=== PATIENT | male | born 1935 | race Caucasian/White ===

== ENCOUNTER 2016-07-10 11:59 | Outpatient (RCR) | payer MEDICARE, OTHER | END 2016-09-14 | disposition home or self-care (01) | LOC: CR 11:59 | PROVIDERS: ATTEND Thoracic Surgery (Cardiothoracic Vascular Surgery) | DX: Z09 Encounter for follow-up examination after completed treatment for conditions other than malignant neoplasm (principal); Z95.2 Presence of prosthetic heart valve | CPT/HCPCS: 93798 ==

== ENCOUNTER → 2018-07-05 | Outpatient (CLI) | payer MEDICARE, OTHER ==
--- NOTE | 2018-07-05 15:09 | Diagnostic Imaging Report ---
INDICATION: Scrotal swelling. FINDINGS: There are large bilateral hydroceles present. No evidence of inguinal hernia. The testicles appear symmetrical measuring 3 x 1.1 x 1.8 cm on the right and 2.7 x 1.4 x 1.5 cm on the left. There is normal blood flow to both testes. The epididymides are not enlarged. No evidence of varicoceles. IMPRESSION: Large bilateral hydroceles. The testes are normal. Dictated by: Dictated on workstation # [id number]
== END ==
LOC: RAD 13:28
PROVIDERS: ATTEND Nurse Practitioner Family
DX: N43.3 Hydrocele, unspecified (principal)
CPT/HCPCS: 76870

== ENCOUNTER → 2018-09-02 | Outpatient (CLI) | payer MEDICARE, OTHER ==
--- NOTE | 2018-09-02 17:02 | Diagnostic Imaging Report ---
INDICATION: Right flank pain EXAM: KUB 4:59 PM FINDINGS: The bowel gas pattern is normal. There are vascular calcifications present. There are no appreciable calculi. IMPRESSION: Unremarkable abdomen. Dictated by: Dictated on workstation # [id number]
== END ==
LOC: RAD 16:16
PROVIDERS: ATTEND Nurse Practitioner Family
DX: R10.9 Unspecified abdominal pain (principal); Z87.442 Personal history of urinary calculi
CPT/HCPCS: 74018

== ENCOUNTER → 2018-09-20 | Outpatient (CLI) | payer MEDICARE, OTHER ==
--- NOTE | 2018-09-20 16:08 | Diagnostic Imaging Report ---
INDICATION: Hydrocele. FINDINGS: The right testicle measures 3.0 x 1.2 x 2.3 cm and the left testicle measures 2.6 x 2.4 x 2.0 cm. No testicular mass is seen. There is blood flow bilaterally. There appears to be a large right hydrocele. There is a smaller left hydrocele. Epididymides are unremarkable. There appears to be fluid in the right inguinal canal. IMPRESSION: 1. No evidence of testicular mass or vascular compromise. 2. Large right and [id number] left hydrocele. Dictated on workstation # [id number]
== END ==
LOC: RAD 10:36
PROVIDERS: ATTEND Urology
DX: N43.3 Hydrocele, unspecified (principal); K40.90 Unilateral inguinal hernia, without obstruction or gangrene, not specified as recurrent
CPT/HCPCS: 76870

== ENCOUNTER 2018-10-07 05:39 | Outpatient (CLI) | payer MEDICARE, OTHER ==
[~2018-10-07] VITALS: Ht 172.7 cm; Wt 83.0 kg
[2018-10-07] MEDS ORDERED: PRD10T PO (11:51)
[2018-10-07] MEDS ORDERED: CARV12.52 PO (11:51)
[2018-10-07] MEDS ORDERED: TAMS0.4C2 PO (11:51)
[2018-10-07] MEDS ORDERED: CHOL500049 PO (11:51)
[2018-10-07] MEDS ORDERED: GLIM4TAB PO (11:51)
[2018-10-07] MEDS ORDERED: LISI-552 PO (11:51)
[2018-10-07] MEDS ORDERED: RUXO10TA PO (11:51)
[2018-10-07] MEDS ORDERED: BUME1TAB4 PO (11:51)
== END 2018-10-07 11:58 | disposition home or self-care (01) ==
LOC: PREOP 05:39
PROVIDERS: ATTEND Urology
DX: Z01.818 Encounter for other preprocedural examination (principal)

== ENCOUNTER 2018-10-09 06:16 | Day surgery (SDC) | payer MEDICARE, OTHER ==
[~2018-10-09] VITALS: Ht 172.7 cm; Wt 83.0 kg
[~2018-10-09 06:16] MED LIST: BUME1TAB4 PO; CARV12.52 PO; CHOL500049 PO; GLIM4TAB PO; LISI-552 PO; PRD10T PO; RUXO10TA PO; TAMS0.4C2 PO
[2018-10-09 06:40] VITALS: BP 155/80
[2018-10-09] MEDS ORDERED: ceFAZolin 2 GM IV Premixed 50 ML IV ONE ×2 (06:45→09:15)
[2018-10-09] MEDS ORDERED: CATHETER FLUSH 10 ML SYR IV PRN (06:45)
[2018-10-09] MEDS ORDERED: ceFAZolin 1,000 MG/SWFI 10 ML IV PUSH IV ONE ×2 (06:45)
[2018-10-09] MEDS ORDERED: fentaNYL INJECTION 100 MCG/2 ML AMP ONE (06:57)
[2018-10-09] MEDS ORDERED: proPOfol 200 MG/20 ML (DIPRIVAN) VIAL IV ONE (06:57)
[2018-10-09] MEDS ORDERED: ONDANSETRON 4 MG/2 ML (SDV) Z0FRAN ONE (06:57)
[2018-10-09] MEDS ORDERED: LIDOCAINE PF 2% 5 ML (XYLOCAINE) VIAL ONE (06:57)
[2018-10-09] MEDS ORDERED: ROCURONIUM 10 MG/ML 5 ML SYRINGE IV ONE (06:57)
[2018-10-09] MEDS: LACTATED RINGERS 1,000 ML IV SCH ×2 (07:05→08:10)
[2018-10-09] MEDS ORDERED: ceFAZolin 2 GM IV Premixed 50 ML ONE (07:13)
--- NOTE | 2018-10-09 07:19 | Progress Note-Pre Operative ---
Pre-Operative Progress Note H&P Reviewed The H&P was reviewed, patient examined and no changes noted. Date Seen by Provider: Oct 09, 2018 Time Seen by Provider: 07:19 Date H&P Reviewed: Oct 09, 2018 Time H&P Reviewed: 07:19 Pre-Operative Diagnosis: RT INGUINAL HERNIA AND HYDROCELE REINA MASON MD Oct 09, 2018 07:19
[2018-10-09] MEDS ORDERED: LIDOCAINE 1% INJ 20 ML 20 ML VIAL ONE (07:24)
[2018-10-09] MEDS ORDERED: BUP/EPI 0.5% 1:200,000 (SENSORCAINE) 30 ML VIAL ONE (07:24)
[2018-10-09] MEDS ORDERED: HYDROCORTISONE 100 MG/2 ML (Solu-CORTEF) VIAL ONE (08:25)
[2018-10-09] MEDS ORDERED: PHENYLEPHRINE 100 MCG/ML 10 ML (ANESTHESIA) SYR ONE (08:25)
[2018-10-09] MEDS ORDERED: SEVOFLURANE (ULTANE) 15 ML INHAL SOLN ONE ×3 (08:26→08:34)
[2018-10-09] MEDS ORDERED: BUPIVACAINE 0.25% 30 ML (SENSORCAINE) VIAL ONE (08:34)
[2018-10-09] MEDS ORDERED: GLYCOPYRROLATE 0.2 MG/ML (ROBINUL) 2 ML VIAL ONE (08:38)
[2018-10-09] MEDS ORDERED: NEOSTIGMINE 1 MG/ML 5 ML SYRINGE ONE (08:38)
--- NOTE | 2018-10-09 09:11 | Progress Note-Post Operative ---
Post-Operative Progess Note Surgeon (s)/Evp And Chief Operating Officer (s) Surgeon SHIRAZ TOBIN DO Evp And Chief Operating Officer: Dr. 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
--- NOTE | 2018-10-09 09:11 | Progress Note-Post Operative ---
Post-Operative Progess Note Surgeon (s)/Silk Weaver (s) Surgeon REINA MASON MD Silk Weaver: Bao TOBIN Pre-Operative Diagnosis RT INGUINAL HERNIA AND HYDROCELE Post-Operative Diagnosis SAME AND ATROPHIC RT TESTIS Procedure & Operative Findings Date of Procedure 10/09/18 Procedure Performed/Findings RT I.H REPAIR AND RT ORCHIECTOMY Anesthesia Type GENERAL Estimated Blood Loss Estimated blood loss (mL): NEGLIGIBLE Specimens/Packing Specimens Removed RT TESTIS WITH APPENDAGES AND SPERMATIC CORD WITH HYDROCELE HERNIA SAC Packing: NONE REINA MASON MD Oct 09, 2018 09:11
[2018-10-09] MEDS ORDERED: ACHD5005 PO (09:12)
--- NOTE | 2018-10-09 09:14 | Discharge Inst-Simple/Standard ---
Discharge Inst-Standard Discharge Medications New, Converted or Re-Newed RX: RX on Chart Patient Instructions/Follow Up Plan of Care/Instructions/FU: 2 weeks Pj 2 weeks Mao Activity as Tolerated: No Discharge Diet: Regular Diet Other Inst to Patient Follow up Appt: Make appointment for 2 weeks Pj and Mao Instructions: No lifting greater than 10 pounds. No strenuous activity. May shower in 24 hours, no tub bath or soaking. Use incentive spirometer at home as directed. No Smoking Skin/Wound Care: You have special glue over incisions it will fall off on its own. Symptoms to Report: Appetite Changes, Extremity Discoloration, Numbness/Tingling, Swelling Increased , Bleeding Excessive, Eyesight Changes, Pain Increased, Urine Color Change, Constipation(Persistent), Fever over 101 degree F, Pain/Pressure in chest, Urinating Difficulty, Cough Up/Vomit Blood, Heart Beat Irreg/Pounding, Pain/ Pressure in jaw, Vaginal Bleeding Increase, Cramps in feet or legs, Lightheadedness, Pain/Pressure in shoulder, Diarrhea(Persistent), Memory Changes Suddenly, Questions/Concerns, Weight gain consecutive days, Dizziness/ Fainting, Nausea/Vomiting, Shortness of Breath, Weight gain over 2 pounds If questions or concerns contact your physician Or seek help at emergency department. SHIRAZ TOBIN DO Oct 09, 2018 09:14
[2018-10-09] MEDS ORDERED: MEPERIDINE (DEMEROL) INJ 50 MG/ML IVP ONE (09:30)
[2018-10-09] MEDS ORDERED: morphine INJ 10 MG/ML 1ML (SYR OR VIAL) IVP ONE (09:30)
[2018-10-09] MEDS ORDERED: ONDANSETRON 4 MG/2 ML (SDV) Z0FRAN IVP PRN (09:30)
[2018-10-09 10:15] VITALS: BP 159/92
[2018-10-09] MEDS ORDERED: HYDROcodone/APAP 5 MG/325 MG (LORTAB) TAB ONE (10:41)
[2018-10-09 10:45] VITALS: BP 158/81
[2018-10-09] MEDS: HYDROcodone/APAP 5 MG/325 MG (LORTAB) TAB PO PRN ×2 (10:50→11:45)
[2018-10-09 11:15] VITALS: BP 147/85
[2018-10-09 11:50] VITALS: BP 147/85
--- NOTE | 2018-10-09 11:59 | OPERATIVE REPORT ---
DATE OF SERVICE: 10/09/2018 PREOPERATIVE DIAGNOSES: Right inguinal hernia and hydrocele. POSTOPERATIVE DIAGNOSES: Right inguinal hernia and hydrocele and atrophic right testis. OPERATION PERFORMED: Right inguinal hernia repair by Dr. Oliva and right orchiectomy by ct. ANESTHESIA: General. COMPLICATIONS: None. PROCEDURE: Under satisfactory general anesthesia, the patient in the supine position, abdomen, genitalia and thigh were prepped and draped in the usual sterile fashion. Dr. Oliva performed his inguinal hernia repair that he will dictate. At that point, we delivered the testicle and appendages into the inguinal incision. The testicle was very atrophic secondary to age and longstanding hydrocele, so I went ahead and removed it to also prevent any recurrence of the hydrocele hernia. We transected the spermatic cord in the internal inguinal ring between two hemostats and 0 chromic catgut sutures. Hemostasis was complete and Dr. Oliva proceeded with the rest of the surgery that he will dictate. Job ID: [id number] DocumentID: [id number] Dictated Date: 10/09/2018 09:11:40 Automotive Power Electronics Engineer Date: 10/09/2018 11:58:30 Dictated By: REINA MASON MD
--- NOTE | 2018-10-09 14:53 | Anesthesia-General Post-Op ---
General Patient Condition Mental Status/LOC: Same as Preop Cardiovascular: Satisfactory Nausea/Vomiting: Absent Respiratory: Satisfactory Pain: Controlled Complications: Absent Post Op Complications Complications None Follow Up Care/Instructions Patient Instructions None needed. Anesthesia/Patient Condition Patient Condition Patient was seen after the procedure and he was doing well, no complaints, stable vital signs, no apparent adverse anesthesia problems. ALEC LEIGH DO Oct 09, 2018 14:53
--- NOTE | 2018-10-10 03:24 | OPERATIVE REPORT ---
DATE OF SERVICE: 10/09/2018 PREOPERATIVE DIAGNOSES: Right inguinal hernia, right hydrocele. POSTOPERATIVE DIAGNOSES: Right inguinal hernia with communicating right hydrocele and atrophy of right testicle. SURGEON: Shiraz Oliva DO. CO-SURGEON: Roby Cavanaugh MD. INDICATIONS: The patient is an 83-year-old male with a right inguinal hernia and right hydrocele. He was evaluated and understands risks and benefits of procedure. He wished to proceed. Consent was signed on the chart. PROCEDURE: Right inguinal hernia repair, excision of cord lipoma and see Dr. Cavanaugh's dictation for right orchiectomy. DESCRIPTION OF PROCEDURE: The patient was prepped and draped in sterile fashion. Surgical pause was performed. Local anesthetic was used to infiltrate the area of the right lower quadrant. A 15 blade scalpel was used to make a skin incision and cautery dissection was used to dissect down to the external oblique. Local anesthetic was infiltrated just below the external oblique and the cautery was used to open up the external oblique down through the external ring. The cord was dissected around. A cord lipoma was present, which was dissected off with cautery. A Geismar was placed around the spermatic cord. There was an indirect hernia, which the hernia sac was begun to be dissected off. This is with a communicating right hydrocele. The sac was opened and a significant amount of fluid was drained and suctioned. The hernia sac was continued to be dissected distally, which the testicle was delivered up through the incision. The right testicle had significant atrophy. Dr. Cavanaugh did right orchiectomy. Please see his dictation. By doing the right orchiectomy, this also did close the hernia sac, which then retracted through the internal ring. At this time, I used a 2-0 Vicryl to close the internal ring. The ProGrip mesh was then placed and secured to Corey's ligament using 2-0 Vicryl. This was all placed in the external oblique, which had adequate coverage and was secured. The wound was irrigated with copious amounts of irrigation and suction. The external oblique was then closed using 3-0 Vicryl in a running fashion, recreating the external ring. The subcutaneous tissues were then reapproximated using 3-0 Vicryl. The skin was then closed using 4-0 Vicryl in a running subcuticular fashion. The abdomen was then washed and dried and Skin Affix was placed over the incision. The patient tolerated procedure well without any complications and was taken to recovery room in stable condition. Job ID: [id number] DocumentID: [id number] Dictated Date: 10/09/2018 16:59:31 Stripper And Opaquer Apprentice Date: 10/10/2018 03:23:42 Dictated By: SHIRAZ OLIVA DO
== END 2018-10-09 12:19 | disposition home or self-care (01) ==
LOC: SDC 06:16
PROVIDERS: ATTEND Urology
DX: K40.90 Unilateral inguinal hernia, without obstruction or gangrene, not specified as recurrent (principal); N43.3 Hydrocele, unspecified; N50.0 Atrophy of testis; Z11.2 Encounter for screening for other bacterial diseases; E11.9 Type 2 diabetes mellitus without complications; K21.9 Gastro-esophageal reflux disease without esophagitis; I25.10 Atherosclerotic heart disease of native coronary artery without angina pectoris; I10 Essential (primary) hypertension; F32.9 Major depressive disorder, single episode, unspecified; Z95.2 Presence of prosthetic heart valve; Z79.899 Other long term (current) drug therapy; Z79.82 Long term (current) use of aspirin; Z79.84 Long term (current) use of oral hypoglycemic drugs; Z87.442 Personal history of urinary calculi
CPT/HCPCS: 82962; 87081

== ENCOUNTER 2018-12-25 17:33 | Emergency (ER) | payer MEDICARE, OTHER ==
[~2018-12-25] VITALS: Ht 172.7 cm; Wt 83.5 kg
[~2018-12-25 17:33] MED LIST changes: +ACHD5005 PO
[2018-12-25] MEDS ORDERED: NITROGLYCERIN 0.4 MG SL TABS BTL 25'S SL ONE (17:55)
[2018-12-25] MEDS ORDERED: ASPIRIN 81 MG CHEW (CHILDREN'S ASA) ONE (17:55)
[2018-12-25] MEDS ORDERED: ASPIRIN 81 MG CHEW (CHILDREN'S ASA) PO ONE (18:00)
[2018-12-25] MEDS ORDERED: NITROGLYCERIN 0.4 MG SL TABS BTL 25'S SL PRN (18:00)
[2018-12-25 18:07] LABS: HEMATOCRIT 32 % (40-54); HEMOGLOBIN 10.1 G/DL (13.3-17.7); MEAN CORPUSCULAR HEMOGLOBIN 34 PG (25-34); MEAN CORPUSCULAR HGB CONC 32 G/DL (32-36); MEAN CORPUSCULAR VOLUME 106 FL (80-99); PLATELET COUNT 172 10^3/uL (130-400); RED CELL DISTRIBUTION WIDTH 24.4 % (10.0-14.5)
--- NOTE | 2018-12-25 18:08 | NUR ---
DR CORLEY STATES NOT TO GIVE HIM ANY MORE NITRO PO.
[2018-12-25] MEDS ORDERED: NITROGLYCERIN 2% OINT 1 GM UNIT DOSE PACKET TOP ONE (18:15)
[2018-12-25] MEDS ORDERED: fentaNYL INJECTION 100 MCG/2 ML AMP IVP ONE ×3 (18:15→19:30)
[2018-12-25 18:22] LABS: ALBUMIN 3.6 GM/DL (3.2-4.5); BILIRUBIN,TOTAL 0.7 MG/DL (0.1-1.0); CREATININE SERUM 1.83 MG/DL (0.60-1.30); MAGNESIUM 1.9 MG/DL (1.8-2.4); POTASSIUM 4.4 MMOL/L (3.6-5.0); TOTAL PROTEIN 6.8 GM/DL (6.4-8.2)
[2018-12-25 18:26] LABS: INR 1.1 (0.8-1.4); PROTHROMBIN TIME PATIENT 14.1 SEC (12.2-14.7)
--- NOTE | 2018-12-25 18:26 | ED Cardiac General ---
History of Present Illness General Chief Complaint: Chest Pain Stated Complaint: CP Nursing Triage Note: ARRIVED VIA WC TO ROOM 05 MOANING IN PAIN. COMPLAINS OF PAIN BETWEEN SHOULDERBLADES AND CHEST OFF AND ON FOR YEARS ET WORSE IN THE LAST FEW DAYS. FAMILY STATES HE HAS BEEN TO THREE DIFFERENT DR'S TODAY AND IS GOING TO BE WORKED UP FOR GALLBLADDER TOMORROW. Source: patient, family History of Present Illness Date Seen by Provider: December 25, 2018 Time Seen by Provider: 17:50 Initial Comments PT ARRIVES VIA POV FROM HOME C/O SEVERE PAIN IN BACK, BETWEEN SHOULDER BLADES DOES NOT VOLUNTEER THAT HE HAS CHEST PAIN OR ABDOMINAL PAIN, BUT ON DIRECT QUESTIONING, HE STATES THEY DO HURT A LITTLE BECAUSE OF HIS BACK HURTING HAS HAD THIS PAIN OFF AND ON FOR 3-4 YEARS, HAS BEEN WORSE THE LAST COUPLE OF DAYS, AND STARTED TODAY AROUND 1330 AND WILL NOT STOP ATE [employer] AT NOON PAIN OCCURS EVERY EVENING AFTER HE EATS AND USUALLY ONLY LASTS 15-20 MINUTES AND GOES AWAY NO NAUSEA/VOMITING/DIARRHEA NO URINARY SYMPTOMS + SHORTNESS OF BREATH--DENIES HISTORY OF RESPIRATORY PROBLEMS NO COUGH, NO FEVER OR URI SYMPTOMS NO PARESTHESIAS OR MOTOR DEFICITS STATES BOTH OF HIS ELBOWS AND FOREARMS ALSO HURT HAS TAKEN HYDROCODONE TODAY AT 1545 TODAY, WITHOUT RELIEF PT SAW DR. MCMANUS TODAY FOR THIS PROBLEM AND TESTS FOR GALLBLADDER AND MRI OF HIS BACK ARE BEING SCHEDULED PT SAW DR. BOWEN TODAY FOR CHRONIC BILATERAL KNEE PAIN, AND GOT SHOTS IN BOTH OF HIS KNEES PT HAS HAD TAVR, AND CARDIAC CATHS IN THE PAST, BUT NO STENTS OR OTHER INTERVENTIONS, OR OTHER PROBLEMS WITH HIS HEART. 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 Allergies and Home Medications Allergies Coded Allergies: No Known Drug Allergies (Unverified , 10/07/18) Home Medications Bumetanide 1 Mg Tablet, 2 MG PO BID, (Reported) TAKE 2 (1MG) TABS Carvedilol 12.5 Mg Tablet, 12.5 MG PO BID, (Reported) Cholecalciferol (Vitamin D3) 50,000 Unit Capsule, 50,000 UNIT PO WEEK, (Reported ) Glimepiride 4 Mg Tablet, 4 MG PO DAILY, (Reported) Hydrocodone Bit/Acetaminophen 1 Tab Tab, 1-2 TAB PO Q6H PRN for PAIN-MODERATE Prescribed by: SHIRAZ TOBIN on 10/09/18 0912 Lisinopril 20 Mg Tablet, 20 MG PO DAILY, (Reported) Prednisone 10 Mg Tab, 40 MG PO DAILY, (Reported) TAKE 4 (10MG) TABS PRESCRIBED 6 TABS DAILY FOR 17 DAYS BUT ONLY TAKING 4 TABS PER DAY Ruxolitinib Phosphate 10 Mg Tablet, 10 MG PO BID, (Reported) Tamsulosin HCl 0.4 Mg Cap.er.24h, 0.4 MG PO DAILY, (Reported) Patient Home Medication List Home Medication List Reviewed: Yes Review of Systems Review of Systems Constitutional: no symptoms reported; No chills, No diaphoresis, No dizziness, No fever Respiratory: See HPI; Denies Cough (PT DENIES COUGH, BUT PT IS NOTED TO HAVE A MILD COUGH DURING COURSE OF ER STAY. ); Shortness of Air Cardiovascular: See HPI, Chest Pain; Denies Edema, Denies Lightheadedness, Denies Palpitations, Denies Syncope Gastrointestinal: See HPI, Abdominal Pain; Denies Diarrhea, Denies Nausea, Denies Vomiting Genitourinary: No Symptoms Reported Musculoskeletal: see HPI, back pain, other (CHRONIC BILATERAL KNEE PAIN ) Skin: no symptoms reported Psychiatric/Neurological: No Symptoms Reported Endocrine: No Symptoms Reported Hematologic/Lymphatic: No Symptoms Reported Past Skmydnq-Yrnshi-Tkcktf Hx Patient Social History Alcohol Use: Denies Use Recreational Drug Use: No Smoking Status: Never a Smoker Type Used: Smokeless Tobacco (CHEWED TOBACCO) 2nd Hand Smoke Exposure: No Recent Foreign Travel: No Contact w/Someone Who Travel: No Recent Infectious Disease Expo: No Recent Hopitalizations: No Immunizations Up To Date Date of Pneumonia Vaccine: Oct 07, 2016 Seasonal Allergies Seasonal Allergies: Yes Past Medical History Surgeries: Yes (BILATERAL CAROTID ENDARTERECTOMIES; BILATERAL KNEE SCOPES; RIGHT WRIST SURGERY; KIDNEY STONE REMOVALS; TAVR; CARDIAC CATHS--NO STENTS; RIGHT INGUINAL HERNIA 10/09/18) Abdominal, Appendectomy, Cardiac, Orthopedic, Renal, Valve Replacement, Vascular Surgery Respiratory: No Cardiac: Yes High Cholesterol, Hypertension, Valvular Heart Disease Neurological: No Genitourinary: Yes (HYDROCOELE) Kidney Stones Gastrointestinal: Yes (RIGHT INGUINAL HERNIA REPAIR 09/2018) Abdominal Hernia, Gastroesophageal Reflux Musculoskeletal: Yes Arthritis, Chronic Back Pain Endocrine: Yes Diabetes, Non-Insulin dep HEENT: No Cancer: Yes (MYELOFIBROSIS) Skin Psychosocial: No Integumentary: No Blood Disorders: Yes (ANEMIA, MYELOFIBROSIS) Physical Exam Vital Signs Vital Signs - First Documented 12/25/18 12/25/18 17:33 18:04 Temp 98.0 Pulse 92 Resp 16 B/P (MAP) 196/107 (136) Pulse Ox 96 O2 Delivery Room Air O2 Flow Rate 2.00 Capillary Refill : Less Than 3 Seconds Height, Weight, BMI Height: 5'8.00" Weight: 184lbs. 0.0oz. 83.406547jl; 27.8 BMI Method:Stated General Appearance: WD/WN, Other (MOANING, WAILING VERY LOUDLY--VERY DRAMATIC. ) HEENT: PERRL/EOMI Neck: Full Range of Motion, Normal Inspection, Non Tender, Supple; No JVD Respiratory: Chest Non Tender, Normal Breath Sounds, No Accessory Muscle Use, No Respiratory Distress Cardiovascular: Regular Rate, Rhythm, No Edema, No JVD, No Murmur, Normal Peripheral Pulses Gastrointestinal: Tenderness, Other (ROTUND, SLIGHTLY FIRM, MILD EPIGASTRIC TENDERNESS) Extremity: Normal Capillary Refill, Normal Inspection, Normal Range of Motion, Non Tender, No Calf Tenderness, No Pedal Edema Neurologic/Psychiatric: Alert, Oriented x3, No Motor/Sensory Deficits, Normal Mood/Affect, diversified crops farmer II-XII Norm as Tested Skin: Normal Color, Warm/Dry; No Rash Focused Exam Lactate Level 12/25/18 18:15: Lactic Acid Level 3.86*H Lactic Acid Level Laboratory Tests Test 12/25/18 18:15 Lactic Acid Level 3.86 MMOL/L (0.50-2.00) *H Progress/Results/Core Measures Results/Orders Lab Results Laboratory Tests Test 12/25/18 17:50 12/25/18 18:15 12/25/18 19:55 12/25/18 20:18 Range/Units White Blood Count 45.7 *H 4.3-11.0 10^3/uL Red Blood Count 3.01 L 4.35-5.85 10^6/uL Hemoglobin 10.1 L 13.3-17.7 G/DL Hematocrit 32 L 40-54 % Mean Corpuscular Volume 106 H 80-99 FL Mean Corpuscular Hemoglobin 34 25-34 PG Mean Corpuscular Hemoglobin Concent 32 32-36 G/DL Red Cell Distribution Width 24.4 H 10.0-14.5 % Platelet Count 172 130-400 10^3/uL Mean Platelet Volume 7.4-10.4 FL Neutrophils (%) (Auto) 42-75 % Lymphocytes (%) (Auto) 12-44 % Monocytes (%) (Auto) 0-12 % Eosinophils (%) (Auto) 0-10 % Basophils (%) (Auto) 0-10 % Neutrophils # (Auto) 1.8-7.8 X 10^3 Lymphocytes # (Auto) 1.0-4.0 X 10^3 Monocytes # (Auto) 0.0-1.0 X 10^3 Eosinophils # (Auto) 0.0-0.3 10^3/uL Basophils # (Auto) 0.0-0.1 10^3/uL Neutrophils % (Manual) 32 % Lymphocytes % (Manual) 6 % Monocytes % (Manual) 4 % Eosinophils % (Manual) 3 % Basophils % (Manual) 2 % Metamyelocytes % 7 % Myelocytes % 11 % Promyelocytes % 1 % Band Neutrophils 34 % Nucleated Red Blood Cells 6 Prothrombin Time 14.1 12.2-14.7 SEC INR Comment 1.1 0.8-1.4 Activated Partial Thromboplast Time 33 24-35 SEC Sodium Level 137 135-145 MMOL/L Potassium Level 4.4 3.6-5.0 MMOL/L Chloride Level 106 98-107 MMOL/L Carbon Dioxide Level 16 L 21-32 MMOL/L Anion Gap 15 H 5-14 MMOL/L Blood Urea Nitrogen 38 H 7-18 MG/DL Creatinine 1.83 H 0.60-1.30 MG/DL Estimat Glomerular Filtration Rate 36 BUN/Creatinine Ratio 21 Glucose Level 410 *H 70-105 MG/DL Calcium Level 9.0 8.5-10.1 MG/DL Corrected Calcium 9.3 8.5-10.1 MG/DL Magnesium Level 1.9 1.8-2.4 MG/DL Total Bilirubin 0.7 0.1-1.0 MG/DL Aspartate Amino Transf (AST/SGOT) 77 H 5-34 U/L Alanine Aminotransferase (ALT/SGPT) 69 H 0-55 U/L Alkaline Phosphatase 108 40-136 U/L Total Creatine Kinase 80 30-200 U/L Creatine Kinase MB 5.2 <6.6 NG/ML Myoglobin 241.1 H 10.0-92.0 NG/ML Troponin I 0.111 H <0.028 NG/ML B-Type Natriuretic Peptide 245.2 H <100.0 PG/ML Total Protein 6.8 6.4-8.2 GM/DL Albumin 3.6 3.2-4.5 GM/DL Amylase Level 105 25-125 U/L Lipase 65 8-78 U/L Lactic Acid Level 3.86 *H 0.50-2.00 MMOL/L Glucometer 296 H 70-110 MG/DL Blood Gas Puncture Site LEFT RAD Blood Gas Patient Temperature 97.9 Arterial Blood pH 7.31 *L 7.37-7.43 Arterial Blood Partial Pressure CO2 33 L 35-45 MMHG Arterial Blood Partial Pressure O2 72 L 79-93 MMHG Arterial Blood HCO3 16 *L 23-27 MMOL/L Arterial Blood Total CO2 17.0 L 21.0-31.0 MMOL/L Arterial Blood Oxygen Saturation 93 L 94-100 % Arterial Blood Base Excess -9.1 L -2.5-2.5 MMOL/L [place] Test YES-POS Blood Gas Ventilator Setting NO Blood Gas Inspired Oxygen 4 Test 12/25/18 20:45 Range/Units Urine Color YELLOW Urine Clarity CLEAR Urine pH 5 5-9 Urine Specific [place] 1.015 L 1.016-1.022 Urine Protein 4+ NEGATIVE Urine Glucose (UA) 3+ H NEGATIVE Urine Ketones NEGATIVE NEGATIVE Urine Nitrite NEGATIVE NEGATIVE Urine Bilirubin NEGATIVE NEGATIVE Urine Urobilinogen NORMAL NORMAL MG/DL Urine Leukocyte Esterase NEGATIVE NEGATIVE Urine RBC (Auto) 5+ H NEGATIVE Urine RBC 25-50 H /HPF Urine WBC NONE /HPF Urine Squamous Epithelial Cells RARE /HPF Urine Crystals NONE /LPF Urine Bacteria FEW H /HPF Urine Casts PRESENT /LPF Urine Hyaline Casts 2-5 H /LPF Urine Mucus NEGATIVE /LPF Urine Culture Indicated CULTURE PENDING Micro Results Microbiology 12/25/18 Influenza Types A,B Antigen (KATEY) - Final, Complete My Orders Orders - KULDEEP CORLEY DO Cbc With Automated Diff (12/25/18 18:00) Magnesium (12/25/18 18:00) Chest 1 View, Ap/Pa Only (12/25/18 18:00) Ekg Tracing (12/25/18 18:00) Cardiac Profile 1 (12/25/18 18:00) Comprehensive Metabolic Panel (12/25/18 18:00) Myoglobin Serum (12/25/18 18:00) Protime With Inr (12/25/18 18:00) Partial Thromboplastin Time (12/25/18 18:00) O2 (12/25/18 18:00) Monitor-Rhythm Ecg Trace Only (12/25/18 18:00) Ed Iv/Invasive Line Start (12/25/18 18:00) Creatine Kinase (12/25/18 18:00) Creatine Kinase Mb (12/25/18 18:00) Lipase (12/25/18 18:00) Amylase (12/25/18 18:00) BNP (12/25/18 18:00) Nitroglycerin 0.4 Mg Btl 25's (Nitrostat (12/25/18 18:00) Aspirin Chewable Tablet (Baby Aspirin Ch (12/25/18 18:00) Nitroglycerin Ointment (Nitrobid Ointme (12/25/18 18:15) Fentanyl Injection (Sublimaze Injection (12/25/18 18:15) Manual Differential (12/25/18 17:50) Lactic Acid Analyzer (12/25/18 18:13) Blood Culture (12/25/18 18:13) Ct Chest/Abdomen/Pelvis Wo (12/25/18 18:31) Insulin (Regular) Human (Humulin R (Per (12/25/18 18:45) Ed Iv/Invasive Line Start (12/25/18 18:39) Ns Iv 1000 Ml (Sodium Chloride 0.9%) (12/25/18 18:39) Sputum Culture (12/25/18 18:49) Urinalysis (12/25/18 18:49) Urine Culture (12/25/18 18:49) Ed Iv/Invasive Line Start (12/25/18 18:49) Vital Signs Adult Sepsis Patie Q15M (12/25/18 18:49) O2 (12/25/18 18:49) Remove Rings In Anticipation O (12/25/18 18:49) Ceftriaxone For Iv Use (Rocephin For I (12/25/18 19:00) Azithromycin Injection (Zithromax Inject (5/1/19 19:00) Fentanyl Injection (Sublimaze Injection (12/25/18 19:00) Ns Iv 1000 Ml (Sodium Chloride 0.9%) (12/25/18 18:43) Insulin (Regular) Human (Humulin R (Per (12/25/18 18:43) Fentanyl Injection (Sublimaze Injection (12/25/18 19:30) Morphine Injection (Morphine Injection (12/25/18 19:43) Accucheck Stat ONCE (12/25/18 19:51) Hydralazine Injection (Apresoline Inject (12/25/18 20:00) Furosemide Injection (Lasix Injection) (12/25/18 20:00) Methylprednisolone Sod Succ (Solu-Medrol (12/25/18 20:00) Catheter(Urinary) Insert & Ass 03,15 (12/25/18 20:01) Enoxaparin Injection (Lovenox Injection) (12/25/18 20:15) Albuterol/Ipra Inhalation Soln (Duoneb I (12/25/18 20:15) Rt Request For Service (12/25/18 20:02) Svn Small Volume Nebulizer (12/25/18 20:02) Arterial Blood Gas (12/25/18 20:02) Influenza A And B Antigens (12/25/18 20:08) Albuterol/Ipra Inhalation Soln (Duoneb I (12/25/18 20:10) Enoxaparin Injection (Lovenox Injection) (12/25/18 20:11) Ekg Tracing (12/25/18 20:23) Sodium Bicarbonate 8.4% Syr (Sodium Bica (12/25/18 20:45) Morphine Injection (Morphine Injection (12/25/18 20:54) Arterial Blood Draw (12/25/18 ) Sodium Bicarbonate 8.4% Syr (Sodium Bica (12/25/18 20:38) Medications Given in ED Current Medications Medications Dose Ordered Sig/Sandeep Route Start Time Stop Time Status Last Admin Dose Admin Albuterol/ Ipratropium 3 ml STK-MED ONCE .ROUTE 12/25/18 20:10 12/25/18 20:14 DC 12/25/18 20:25 3 ML Aspirin 324 mg ONCE ONCE PO 12/25/18 18:00 12/25/18 18:02 DC 12/25/18 17:58 324 MG Azithromycin 500 mg/Sodium Chloride 250 ml @ 250 mls/hr ONCE ONCE IV 12/25/18 19:00 12/25/18 19:59 DC 12/25/18 19:55 250 MLS/HR Ceftriaxone Sodium 2000 mg/ Sterile Water 10 ml @ 200 mls/hr ONCE ONCE IV 12/25/18 19:00 12/25/18 19:02 DC 12/25/18 19:41 200 MLS/HR Enoxaparin Sodium 90 mg ONCE ONCE SC 12/25/18 20:15 12/25/18 20:16 DC 12/25/18 20:27 90 MG Fentanyl Citrate 50 mcg ONCE ONCE IVP 12/25/18 18:15 12/25/18 18:16 DC 12/25/18 18:15 50 MCG Furosemide 40 mg ONCE ONCE IVP 12/25/18 20:00 12/25/18 20:01 DC 12/25/18 20:22 40 MG Insulin Human Regular 20 unit ONCE ONCE IV 12/25/18 18:45 12/25/18 19:04 DC 12/25/18 18:50 20 UNIT Methylprednisolone Sodium Succinate 125 mg ONCE ONCE IVP 12/25/18 20:00 12/25/18 20:01 DC 12/25/18 20:22 125 MG Nitroglycerin 0.4 mg UD PRN SL 12/25/18 18:00 12/25/18 21:26 DC 12/25/18 17:59 0.4 MG Nitroglycerin 1 inch ONCE ONCE TOP 12/25/18 18:15 12/25/18 18:16 DC 12/25/18 18:14 1 INCH Sodium Bicarbonate 50 meq ONCE ONCE IV 12/25/18 20:45 12/25/18 21:26 DC 12/25/18 20:44 50 MEQ Sodium Chloride 1,000 ml @ 0 mls/hr Q0M ONCE IV 12/25/18 18:39 12/25/18 19:04 DC 12/25/18 18:50 1,000 MLS/HR Vital Signs/I&O 12/25/18 12/25/18 12/25/18 17:33 18:04 20:23 Temp 98.0 Pulse 92 Resp 16 B/P (MAP) 196/107 (136) Pulse Ox 96 95 O2 Delivery Room Air Nasal Cannula Nasal Cannula O2 Flow Rate 2.00 4.00 Blood Pressure Mean: 136 Progress Progress Note : Progress Note O2 SATS 87-90% ON ROOM AIR--UP TO 94% ON 4L/NC PT LATER DEVELOPED SOME WHEEZING--GIVEN NEB TREATMENT WITH DECREASED WHEEZING AND INCREASED AERATION GIVEN ASPIRIN AND NTG SL X 1, WITH NO RELIEF OF PAIN--CONTINUES TO C/O SEVERE UPPER BACK PAIN PT GIVEN FENTANYL WITH SIGNIFICANT IMPROVEMENT IN PAIN 1900--PAIN HAS RETURNED AND PT WAILING AGAIN--GIVEN ADDITIONAL DOES OF FENTANYL WITHOUT RELIEF GIVEN MORPHINE WITH RELIEF OF PAIN FAMILY REPORTS THAT HIS WBC IS "ALWAYS HIGH" BUT CANNOT STATE WHAT HIS NORMAL RANGE IS. PT ALSO HAS LBBB, AND FAMILY DOES NOT KNOW IF THAT IS NEW OR OLD PT HAS NO PRIOR LAB OR EKG'S DONE HERE FOR COMPARISON. Initial ECG Impression Date: December 25, 2018 Initial ECG Impression Time: 17:36 Initial ECG Rate: 90 Initial ECG Rhythm: Normal Sinus (LBBB) Diagnostic Imaging Comments CXR--RIGHT SIDED INFILTRATE, PER RADIOLOGIST REPORT @ 1845 Reviewed: Reviewed by Me Departure Communication (Admissions) NO ICU BEDS AVAILABLE HERE 1999--[facility]--SPOKE WITH DR. BHATT, SHE ADVISES TO HAVE PT BE SEEN IN ER FIRST, HE IS STILL HAVING PAIN 2008--SPOKE WITH DR. GUZMAN, ER PHYSICIAN, ACCEPTS PT FOR TRANSFER Impression Primary Impression: RIGHT SIDED PNEUMONIA Additional Impressions: Hypoxia SEVERE UPPER BACK PAIN LBBB OF UNKNOWN DURATION Elevated troponin Uncontrolled diabetes mellitus Uncontrolled hypertension Renal insufficiency Lactic acidosis Leukocytosis Mild anemia [facility] Condition: Improved Transfer Transfer Facility: [facility] Method of Transfer: EMS Departure-Patient Inst. Referrals: KRISTI MCMANUS MD (PCP/Family) Primary Care Physician KULDEEP CORLEY DO December 25, 2018 18:26
[2018-12-25 18:31] LABS: CREATINE KINASE MB 5.2 NG/ML (<6.6)
[2018-12-25] MEDS ORDERED: NS IV 1000 ML 1,000 ML IV ONE (18:39)
--- NOTE | 2018-12-25 18:40 | Diagnostic Imaging Report ---
INDICATION: Chest pain. Time of exam: 6:27 PM Correlation made with prior study of 06/02/2016. The heart is enlarged. There is infiltrate throughout the right lung which appears to be mixed interstitial and airspace. The left lung is clear. There is no effusion or pneumothorax. IMPRESSION: Right-sided infiltrate suggestive of pneumonia. Dictated by: Dictated on workstation # [id number]
[2018-12-25] MEDS ORDERED: NS IV 1000 ML 1,000 ML ONE (18:43)
[2018-12-25] MEDS ORDERED: inSUlin (REGULAR) HUMAN 1 UNIT/0.01 ML (CHARGE PER UNIT) ONE (18:43)
[2018-12-25] MEDS ORDERED: inSUlin (REGULAR) HUMAN 1 UNIT/0.01 ML (CHARGE PER UNIT) IV ONE (18:45)
[2018-12-25] MEDS ORDERED: cefTRIAXone FOR IV USE 2,000 MG in WATER (STERILE) FOR INJECTION 10 ML IV ONE (19:00)
[2018-12-25] MEDS ORDERED: AZITHROMYCIN INJECTION 500 MG in NS (IVPB) 250 ML IV ONE (19:00)
[2018-12-25 19:24] LABS: WHITE BLOOD COUNT 45.7 10^3/uL (4.3-11.0)
[2018-12-25 19:25] LABS: BAND NEUTROPHILS 34 %; BASOPHILS % (MANUAL) 2 %; EOSINOPHILS % (MANUAL) 3 %; LYMPHOCYTES % (MANUAL) 6 %; METAMYELOCYTES % 7 %; MONOCYTES % (MANUAL) 4 %; MYELOCYTES % 11 %; NEUTROPHILS % (MANUAL) 32 %; NUCLEATED RED BLOOD CELLS 6; PROMYELOCYTES % 1 %
[2018-12-25] MEDS ORDERED: morphine INJ 10 MG/ML 1ML (SYR OR VIAL) IVP STA ×2 (19:43→20:54)
--- NOTE | 2018-12-25 19:50 | NUR ---
PT SON PRESENTS TO NURSES STATION STATING "ARE WE GOING TO DO SOMETHING FOR HIM?" WITH RAISED VOICE. NOTIFIED THAT CT RESULTS ARE PENDING AND LAST TIME PAIN MEDICINE GIVEN. DR. CORLEY COULD HEAR SON WITH RAISED VOICE AND AGGRESSIVE TONE AND PRESENTED TO NURSES STATION TO INFORM SON FURTHER PAIN MEDICATION HAD BEEN ORDERED FOR THE PT.
--- NOTE | 2018-12-25 19:52 | Diagnostic Imaging Report ---
PROCEDURE: CT chest, abdomen, and pelvis without contrast. TECHNIQUE: Multiple contiguous axial images were obtained through the chest, abdomen, and pelvis without the use of intravenous contrast. Auto Exposure Controls were utilized during the CT exam to meet ALARA standards for radiation dose reduction. INDICATION: Upper abdominal pain. Suggestion of pneumonia on chest x-ray. COMPARISON: Chest x-ray also performed today. No prior CT scan is available for comparison. FINDINGS: Absence of intravenous contrast decreases sensitivity for detection of lymphadenopathy, focal lesions and vascular pathology. Multiple images are degraded by patient motion which diminishes detail, and interpretation was made in light of this technical confine. Chest: The trachea and main airways are patent, without evidence of tracheal or endobronchial lesion. There is diffuse patchy consolidation in the right upper, lower, and middle lobes, with scattered more nodular areas of density noted in all of the right lung meza. Patchy consolidation is also demonstrated in the left lower lobe, with suggestion of mild tree-in-bud opacity noted along the posterior aspect of the left upper lobe. No pleural effusion or pneumothorax is demonstrated. Thyroid gland is unremarkable. Scattered prominent mediastinal lymph nodes are demonstrated. There is no axillary adenopathy. There is mild cardiomegaly. No pericardial effusion is demonstrated. There is mild calcified atherosclerotic plaque involving the thoracic aorta and its branch vessels including the coronary arteries. No thoracic aortic aneurysm is demonstrated. Aortic valve prosthesis is demonstrated. No acute displaced rib fractures are demonstrated. There is mild bilateral gynecomastia. No focal diaphragmatic abnormality is demonstrated. Abdomen and pelvis: The liver, spleen, gallbladder, pancreas, and adrenal glands are normal. There is no biliary or pancreatic ductal dilatation demonstrated. The kidneys are symmetric in size, without evidence of renal calculus or hydronephrosis. There is a 4.3 cm cyst in the upper pole of the left kidney. The visualized ureters are normal. There is mild nonspecific perinephric stranding adjacent to both kidneys, likely reflecting prior infection/scarring. No focal perinephric collection is demonstrated. The stomach and duodenum are normal. The small bowel and colon are normal in course and caliber, without evidence of wall thickening or obstruction. There is marked diverticulosis of the descending and sigmoid colon, without evidence of acute diverticulitis. The appendix is not definitely visualized. There are no inflammatory changes adjacent cecum to suggest acute appendicitis. No pneumoperitoneum, abdominal free fluid, or loculated collection. There is marked atherosclerotic calcification of the abdominal aorta, without aneurysmal dilatation. Incidental note is made of a circumaortic left renal vein, a normal variant. Scattered mildly prominent lymph nodes are demonstrated in the upper abdomen, with the largest being a borderline enlarged lymph node measuring 9 mm in short axis diameter next of the carmine of the diaphragm just medial to the IVC and caudate lobe. No focal bladder abnormality is demonstrated. The prostate gland is unremarkable. No pelvic free fluid. Small amount of fluid is demonstrated in the right inguinal canal. Abdominal wall is otherwise unremarkable. Multilevel degenerative changes involve the spine. No acute osseous abnormality is demonstrated. Incidental note is made of an hemangioma in the L2 vertebral body. IMPRESSION: Chest: Scattered airspace disease is noted throughout the right lung meza, and to a lesser degree in the left upper and lower lobe. Some of the consolidation demonstrates a nodular appearance. Findings are concerning for multifocal pneumonia. Recommend followup to resolution. Mediastinal lymphadenopathy, likely reactive in nature to the lung process. Abdomen and pelvis: No acute abdominal or pelvic pathology is demonstrated. There is a borderline enlarged lymph node in the upper abdomen near the right diaphragmatic carmine. Other scattered nonenlarged retroperitoneal lymph nodes are demonstrated. Findings are nonspecific and these may be reactive in nature or reflect patient's baseline. Recommend correlation with history and physical exam to exclude other etiologies. Short interval followup with repeat CT scan in 6 months could be considered to demonstrate stability, as clinically indicated. Diverticulosis, without evidence of acute diverticulitis. Dictated by: Dictated on workstation # [id number]
[2018-12-25] MEDS ORDERED: FUROSEMIDE 40 MG/4 ML INJ (LASIX) IVP ONE (20:00)
[2018-12-25] MEDS ORDERED: hydrALAZINE (APESOLINE) 20 MG/ML VIAL IV ONE (20:00)
[2018-12-25] MEDS ORDERED: methylPREDNISolone 125 MG (Solu-MEDROL) VIAL IVP ONE (20:00)
[2018-12-25] MEDS ORDERED: RT-ALBUTEROL/IPRATROPIUM 3 ML (DUONEB) VIAL ONE (20:10)
[2018-12-25] MEDS ORDERED: ENOXAPARIN 100 MG/1 ML (LOVENOX) SYR ONE (20:11)
[2018-12-25] MEDS ORDERED: RT-ALBUTEROL/IPRATROPIUM 3 ML (DUONEB) VIAL INH ONE (20:15)
[2018-12-25] MEDS ORDERED: ENOXAPARIN 100 MG/1 ML (LOVENOX) SYR SC ONE (20:15)
--- NOTE | 2018-12-25 20:15 | NUR ---
DISCUSSED WITH PT MEDICATIONS ORDERED, PURPOSE FOR INSERTING STONE CATHER AFTER LASIX IV AND SUBSEQUENT TRANSFER TO [facility]. AT THIS TIME, SAME SON WHO PRESENTED TO NURSES STATION PRIOR STATES, "CAN'T WE JUST DO THE MEDICATION AT [facility]? WE DON'T WANT THEM TO END UP DOUBLING THE MEDICATION BECAUSE THEY DIDN'T KNOW WHAT YOU DID HERE." PT AND FAMILY NOTIFIED THAT DR. CORLEY DISCUSSED ALL CARE WITH ACCEPTING [facility] AND THIS RN WILL REPORT TO RN AND SEND PAPER COPY OF CHART WITH ALL CARE, MEDICATIONS, ETC. PROVIDED TO PT.
[2018-12-25 20:29] LABS: ABG BASE EXCESS -9.1 MMOL/L (-2.5-2.5); ABG OXYGEN SATURATION 93 % (94-100); ABG PCO2 33 MMHG (35-45); ABG PO2 72 MMHG (79-93)
[2018-12-25 20:31] LABS: ABG PH 7.31 (7.37-7.43)
[2018-12-25 20:32] LABS: ALLENS TEST YES-POS; INSPIRED O2 4; PATIENT TEMP 97.9; VENTILATOR NO
[2018-12-25] MEDS ORDERED: SODIUM BICARB 8.4% 50 MEQ/50 ML (ABBOTT) SYR ONE (20:38)
[2018-12-25] MEDS ORDERED: SODIUM BICARB 8.4% 50 MEQ/50 ML (ABBOTT) SYR IV ONE (20:45)
[2018-12-25 21:00] LABS: BILIRUBIN,URINE NEGATIVE (NEGATIVE); CLARITY,URINE CLEAR; COLOR,URINE YELLOW; GLUCOSE, URINE (UA) 3+ (NEGATIVE); KETONES,URINE NEGATIVE (NEGATIVE); LEUKOCYTE ESTERASE ,URINE NEGATIVE (NEGATIVE); NITRITE,URINE NEGATIVE (NEGATIVE); PH,URINE 5 (5-9); PROTEIN,URINE 4+ (NEGATIVE); UROBILINOGEN,URINE NORMAL (NORMAL)
[2018-12-25 21:08] LABS: BACTERIA,URINE FEW /HPF; RBC,URINE 25-50 /HPF; SQUAMOUS EPITHELIAL CELL,UR RARE /HPF
[2018-12-25 21:15] VITALS: BP 163/96
== END 2018-12-25 21:15 | disposition short-term general hospital (02) ==
LOC: EDUNIT# 17:33 → ER 17:34
DX: J18.9 Pneumonia, unspecified organism (principal); M54.6 Pain in thoracic spine; I44.7 Left bundle-branch block, unspecified; R74.8 Abnormal levels of other serum enzymes; I10 Essential (primary) hypertension; E11.9 Type 2 diabetes mellitus without complications; N28.9 Disorder of kidney and ureter, unspecified; D72.829 Elevated white blood cell count, unspecified; E87.2 Acidosis; D64.9 Anemia, unspecified; K21.9 Gastro-esophageal reflux disease without esophagitis; E78.00 Pure hypercholesterolemia, unspecified; F17.220 Nicotine dependence, chewing tobacco, uncomplicated; Z90.89 Acquired absence of other organs; Z85.828 Personal history of other malignant neoplasm of skin; Z79.4 Long term (current) use of insulin; Z79.52 Long term (current) use of systemic steroids; Z98.890 Other specified postprocedural states; Z87.442 Personal history of urinary calculi; Z95.9 Presence of cardiac and vascular implant and graft, unspecified; Z95.2 Presence of prosthetic heart valve; Z90.49 Acquired absence of other specified parts of digestive tract
CPT/HCPCS: 36415; 36600; 51702; 71045; 71250; 74176; 80053; 81000; 82150; 82550; 82553; 82805; 82962; 83605; 83690; 83735; 83874; 83880; 84484; 85007; 85027; 85610; 85730; 87040; 87088; 87804; 93005; 93041; 94640; 99291

== ENCOUNTER → 2019-03-14 | Outpatient (CLI) | payer MEDICARE, OTHER ==
--- NOTE | 2019-03-14 10:28 | Diagnostic Imaging Report ---
INDICATION: Right foot pain, dropped object on top of the foot. TIME OF EXAM: 9:58 a.m. FINDINGS: Lateral view does show some dorsal soft tissue swelling. Phalanges and metatarsals appear to be intact. No fractures are seen. Midfoot and hindfoot are unremarkable. IMPRESSION: Dorsal soft tissue swelling. No acute bony abnormality is identified. Dictated by: Dictated on workstation # [id number]
== END ==
LOC: RAD 09:10
PROVIDERS: ATTEND Family Medicine
DX: M79.89 Other specified soft tissue disorders (principal); W20.8XXA Other cause of strike by thrown, projected or falling object, initial encounter
CPT/HCPCS: 73630